=== PATIENT | female | born 1995 | race Caucasian/White ===

== ENCOUNTER 2020-11-10 21:13 | Emergency (ER) | payer OTHER, MEDICAID ==
[~2020-11-10] VITALS: Ht 160 cm; Wt 75.8 kg
[2020-11-10 21:55] LABS: BE -2.3 mmol/L (-2 to +3); PCO2 37.1 mmHg (35.0-45.0); PO2 87.7 mmHg (75.0-100.0); pH 7.394 (7.340-7.450)
[2020-11-10 21:58] LABS: HEMATOCRIT 41.6 % (37.0-47.0); HEMOGLOBIN 13.8 gm/dL (12.0-15.0); MCH 30.3 pg (26.0-34.0); MCHC 33.2 g/dL (28.0-37.0); MCV 91.2 fL (80.0-100.0); MPV 8.4 fl. (7.2-11.1); NUCLEATED RBCS 0 /100WBC; PLATELET COUNT* 337 thou/uL (150-400); RBC 4.56 mil/uL (4.20-5.00); RDW-CV 13.1 % (10.5-14.5); WBC 7.7 thou/uL (4.0-11.0)
[2020-11-10 22:06] LABS: CALCIUM 9.2 mg/dL (8.5-10.1); CREATININE 0.8 mg/dL (0.6-1.3); POTASSIUM 3.4 mmol/L (3.5-5.1)
[2020-11-10 22:10] LABS: ALBUMIN 4.1 g/dL (3.4-5.0); TOTAL BILIRUBIN 0.3 mg/dL (<0.1-1.0); TOTAL PROTEIN 8.1 g/dL (6.4-8.2)
[2020-11-10 22:37] VITALS: BP 128/91
[2020-11-10 22:39] LABS: URINE BILIRUBIN NEGATIVE (Negative); URINE BLOOD NEGATIVE (Negative); URINE CLARITY CLEAR; URINE COLOR YELLOW; URINE GLUCOSE-RANDOM NEGATIVE (Negative); URINE KETONES NEGATIVE (Negative); URINE LEUKOCYTES-REFLEX NEGATIVE (Negative); URINE NITRITE-REFLEX NEGATIVE (Negative); URINE PROTEIN NEGATIVE (Negative); URINE UROBILINOGEN 0.2 E.U./dl (0.2-1.0)
[2020-11-10 22:46] LABS: AMP/METHAMP Negative (Negative); BARBITURATES Negative (Negative); BENZODIAZEPINES Negative (Negative); COCAINE Negative (Negative); METHADONE Negative (Negative); OPIATES Negative (Negative); PCP Negative (Negative); THC POSITIVE (Negative)
[2020-11-10 23:07] LABS: ABSOLUTE MONOCYTES 0.5 thou/uL (0.0-1.2); ABSOLUTE NEUTROPHILS 5.2 thou/uL (1.6-8.1)
[2020-11-10 23:08] LABS: PLATELET ESTIMATE ADEQUATE
--- NOTE | 2020-11-11 11:19 | EKG ---
[place] [address] ELECTROCARDIOGRAM REPORT Name: ISELA ADAMSON [facility]: [facility]#: [id number] Admission: 11/10/20 Attend Phys: Discharge: 11/10/20 Date of : [birth year] Date of Service: 11/10/202150 Report #: [id number] THIS REPORT FOR: //name// [facility] ED Test Date: 2020-11-10 Test Time: 21:51:44 Pat Name: ISELA ADAMSON Department: Room: Gender: F [employer] Operator: ELIZABETH : 1995 Requested By: Hannah Faye Order Number: [id number] MD: Js Preston Measurements Intervals [place] Rate: 98 P: 72 ID: [id number] QRS: 45 QRSD: 86 T: 44 QT: 336 QTc: 430 Interpretive Statements Pediatric ECG interpretation Sinus rhythm Baseline wander in lead(s) II,aVR No previous ECG available for comparison Electronically Signed On 11-11-2020 11:18:56 CDT by Js Preston [email or web address] <ELECTRONICALLY SIGNED> By: Js Preston MD, [facility] 11/11/20 1118 50 50 Js Preston MD, [facility] /EPI
== END 2020-11-10 22:37 | disposition home or self-care (01) ==
LOC: M.ERS 21:13
PROVIDERS: Personal Emergency Response Attendant
DX: F10.920 Alcohol use, unspecified with intoxication, uncomplicated (principal); Z20.822 Contact with and (suspected) exposure to COVID-19; F41.9 Anxiety disorder, unspecified; Z71.1 Person with feared health complaint in whom no diagnosis is made; Z87.42 Personal history of other diseases of the female genital tract; Y90.5 Blood alcohol level of 100-119 mg/100 ml